=== PATIENT | male | born 2000 | race Caucasian/White ===

== ENCOUNTER 2021-05-28 09:38 | Emergency (ER) | payer OTHER ==
[~2021-05-28] VITALS: Ht 175.3 cm; Wt 59.0 kg
--- NOTE | 2021-05-28 10:00 | NUR ---
The patient is bibparents, noticed blood on the surgery site, Right femur, pale skin color [facility] right lower leg pain10/10. Respiration regular and unlabored. Will continue to monitor the patient.
--- NOTE | 2021-05-28 10:23 | NUR ---
DRESSING CHANGES DONE PER DR ROD
[2021-05-28 11:08] LABS: BASOPHILS % (AUTO) 0.3 % (0.0-2.0); EOSINOPHILS % (AUTO) 0.5 % (0.0-6.0); LYMPHOCYTES # (AUTO) 1.1 K/uL (0.8-4.8); LYMPHOCYTES % (AUTO) 12.9 % (20.0-44.0); MEAN CORPUSCULAR HGB CONC 36 g/dl (31.0-36.0); MEAN CORPUSCULAR VOLUME 88 fL (80-96); MONOCYTES # (AUTO) 0.8 K/uL (0.1-1.30); MONOCYTES % (AUTO) 8.8 % (2.0-12.0); NEUTROPHILS # (AUTO) 6.8 K/uL (1.8-8.9); NEUTROPHILS % (AUTO) 77.5 % (43.0-81.0); PLATELET COUNT (AUTO) 184 K/uL (150-450); RED BLOOD CELL COUNT(AUTO) 2.09 MIL/uL (4.5-6.0); WHITE BLOOD COUNT (AUTO) 8.8 K/uL (4.3-11.0)
[2021-05-28 11:19] LABS: HEMATOCRIT 18 % (39-51); HEMOGLOBIN 6.6 g/dL (13.5-17.5)
[2021-05-28] MEDS ORDERED: OXYC-133 PO (11:28)
[2021-05-28 11:48] VITALS: BP 132/63
--- NOTE | 2021-05-28 11:48 | NUR ---
Patient discharged to home in stable condition with parents. Written and verbal after care instructions given. Patient and the parents verbalize understanding of instruction.
[2021-05-28 20:36] LABS: BAND % (MANUAL) 1 % (0.0-5.0); EOSINOPHILS % (MANUAL) 1 % (0-4); LYMPHOCYTES % (MANUAL) 16 % (16-48); MONOCYTES % (MANUAL) 8 % (0-11.0); NEUTROPHILS % (MANUAL) 74 (42-76)
== END 2021-05-28 11:49 | disposition home or self-care (01) ==
LOC: ER 09:43
DX: S72.91XD Unspecified fracture of right femur, subsequent encounter for closed fracture with routine healing (principal); D64.9 Anemia, unspecified; V09.9XXD Pedestrian injured in unspecified transport accident, subsequent encounter
CPT/HCPCS: 36415; 85007; 85025; 99283; A6253 ×2; A6403 ×2